=== PATIENT | female | born 1990 | race Caucasian/White ===

== ENCOUNTER 2017-09-28 21:32 | Emergency (ER) | payer OTHER ==
--- NOTE | 2017-09-28 23:22 | RADIOLOGY REPORT (SQ) ---
EXAM DESCRIPTION: HAND RIGHT 3 VIEWS COMPLETED DATE/TIME: 09/28/2017 10:19 pm REASON FOR STUDY: right thumb injury COMPARISON: None. EXAM PARAMETERS: NUMBER OF VIEWS: Three views. TECHNIQUE: AP, lateral and oblique radiographic images acquired of the right hand. LIMITATIONS: None. FINDINGS: MINERALIZATION: Normal. BONES: No acute fracture or dislocation. No worrisome bone lesions. JOINTS: No effusions. SOFT TISSUES: No significant soft tissue swelling. No foreign body. OTHER: No other significant finding. IMPRESSION: NO RADIOGRAPHIC EVIDENCE OF ACUTE INJURY. TECHNICAL DOCUMENTATION: JOB ID: [id number] [place]-[id number] [employer]- All Rights Reserved
--- NOTE | 2017-09-29 00:46 | ER Document Report ---
ED General - General Chief Complaint: Finger Injury Stated Complaint: FINGER INJURY Time Seen by Provider: 09/29/17 00:27 Notes: Patient is a 27-year-old female who presents with a right thumb injury. 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 She states that since that time she has had a dull, constant, moderate, throbbing pain to the area. Nothing improves or worsens the pain. She denies any history of similar injury in the past. She is right-hand dominant. She denies any additional injuries or concerns. She has not seen a primary care doctor regarding today's concerns. TRAVEL OUTSIDE OF THE [place] IN LAST 30 DAYS: No - Related Data Allergies/Adverse Reactions: Latex, Natural Rubber Adverse Reaction (Verified 02/17/16 07:19) Past Medical History - General Information source: Patient - Social History Smoking Status: Never Smoker Frequency of alcohol use: None Drug Abuse: None Lives with: Spouse/Significant other Family History: Reviewed & Not Pertinent - Immunizations Hx Diphtheria, Pertussis, Tetanus Vaccination: Yes Review of Systems - Review of Systems Notes: Constitutional: Negative for fever. HENT: Negative for sore throat. Eyes: Negative for visual changes. Cardiovascular: Negative for chest pain. Respiratory: Negative for shortness of breath. Gastrointestinal: Negative for abdominal pain, vomiting or diarrhea. Genitourinary: Negative for dysuria. Musculoskeletal: Positive for right thumb injury Skin: Negative for rash. Neurological: Negative for headaches, weakness or numbness. 10 point ROS negative except as marked above and in HPI. Physical Exam - Vital signs Interpretation: Normal Notes: PHYSICAL EXAMINATION: GENERAL: Well-appearing, well-nourished and in no acute distress. HEAD: Atraumatic, normocephalic. EYES: sclera anicteric, conjunctiva are normal. ENT: Moist mucous membranes. NECK: Normal range of motion LUNGS: Normal work of breathing HEART: 2+ radial pulses bilaterally EXTREMITIES: no pitting or edema. No cyanosis. Full flexion extension at the PIP and MCP of the right thumb. There is some moderate, diffuse swelling and ecchymosis to the volar pad of the thumb. NEUROLOGICAL: No focal neurological deficits. Moves all extremities spontaneously and on command. PSYCH: Normal mood, normal affect. SKIN: Warm, Dry, normal turgor, no rashes or lesions noted. Course - Re-evaluation Re-evalutation: 09/29/17 00:43 She presents with right thumb injury work in which the thumb was hyperextended. She has no limited range of motion at the PIP or MCP with full flexion extension. There is some generalized swelling of the thumb I suspect likely traumatic ecchymosis to the area. X-ray does not show any evidence of a fracture or dislocation. 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 At this time will discharge with return precautions and follow-up recommendations. Verbal discharge instructions given a the bedside and opportunity for questions given. Medication warnings reviewed. Patient is in agreement with this plan and has verbalized understanding of return precautions and the need for primary care follow-up in the next 24-72 hours. - Diagnostic Test Radiology reviewed: Image reviewed, Reports reviewed Radiology results interpreted by me: 09/29/17 00:44 Right hand x-ray: No acute fracture or dislocation Discharge - Discharge Clinical Impression: Injury of right thumb Qualifiers: Encounter type: initial encounter Qualified Code(s): S69.91XA - Unspecified injury of right wrist, hand and finger(s), initial encounter Condition: Good Disposition: HOME, SELF-CARE Additional Instructions: Your x-ray does not show any acute fracture today. You likely have a ligamentous strain. You should continue to take anti-inflammatories such as ibuprofen 600 mg every 6 hours. Continue to apply ice to the area is much your able. Please follow-up with your primary care physician if you do not have improving your symptoms in the next 1-2 weeks. Please return immediately if you develop weakness, numbness, spreading redness from the area, or any other symptoms that are concerning to you.
[2017-09-29 02:10] VITALS: BP 134/83
== END 2017-09-29 02:10 | disposition home or self-care (01) ==
LOC: ER 21:32
DX: S69.90XA Unspecified injury of unspecified wrist, hand and finger(s), initial encounter (principal); W50.0XXA Accidental hit or strike by another person, initial encounter; Y93.89 Activity, other specified; Y92.239 Unspecified place in hospital as the place of occurrence of the external cause; Y99.0 Civilian activity done for income or pay
CPT/HCPCS: 99283

== ENCOUNTER 2018-07-25 04:06 | Inpatient (IN) | payer OTHER ==
[2018-07-25] MEDS ORDERED: DINOPROSTONE 10 MG VAGINAL INSERT.SR PV PRN (04:16)
[2018-07-25] MEDS ORDERED: RINGERS SOLUTION,LACTATED 300 ML IV ONE (04:16)
[2018-07-25 05:05] LABS: ABSOLUTE EOSINOPHILS # (AUTO) 0.1 10^3/uL (0.0-0.6); ABSOLUTE LYMPHOCYTES (AUTO) 2.2 10^3/uL (0.5-4.7); ABSOLUTE MONOCYTES (AUTO) 0.4 10^3/uL (0.1-1.4); ABSOLUTE NEUT (AUTO) 4.3 10^3/uL (1.7-8.2); BASOPHILS % (AUTO) 0.2 % (0-2); EOSINOPHILS % (AUTO) 0.8 % (0-6); HEMATOCRIT 34.8 % (36.0-47.0); HEMOGLOBIN 11.6 g/dL (12.0-15.5); LYMPHOCYTES % (AUTO) 31.6 % (13-45); MEAN CORPUSCULAR HEMOGLOBIN 27.7 pg (27.0-33.4); MEAN CORPUSCULAR HGB CONC 33.2 g/dL (32.0-36.0); MEAN CORPUSCULAR VOLUME 83 fl (80-97); MONOCYTES % (AUTO) 6.1 % (3-13); PLATELET COUNT 176 10^3/uL (150-450); RED BLOOD COUNT 4.19 10^6/uL (3.72-5.28); SEGMENTED NEUTROPHILS % (AUTO) 61.3 % (42-78); TOTAL CELLS COUNTED % (AUTO) 100 %
[2018-07-25] MEDS ORDERED: DINOPROSTONE 10 MG VAGINAL INSERT.SR ONE (05:05)
[2018-07-25 05:16] LABS: APPEARANCE,URINE CLOUDY; BILIRUBIN,URINE NEGATIVE (NEGATIVE); COLOR,URINE YELLOW; GLUCOSE, URINE NEGATIVE (NEGATIVE); KETONES,URINE NEGATIVE (NEGATIVE); LEUKOCYTE ESTERASE,URINE LARGE (NEGATIVE); NITRITE,URINE NEGATIVE (NEGATIVE); PROTEIN,URINE NEGATIVE (NEGATIVE); URINE SPECIFIC GRAVITY 1.021; UROBILINOGEN,URINE NEGATIVE mg/dL (<2.0)
[2018-07-25] MEDS: RINGERS SOLUTION,LACTATED 1,000 ML IV PRN ×2 (05:16→21:49)
[2018-07-25 05:32] LABS: URINE AMPHETAMINES SCREEN NEGATIVE; URINE BARBITURATES SCREEN NEGATIVE; URINE BENZODIAZEPINES SCREEN NEGATIVE; URINE COCAINE SCREEN NEGATIVE; URINE MARIJUANA (THC) SCREEN NEGATIVE; URINE METHADONE SCREEN NEGATIVE; URINE PHENCYCLIDINE SCREEN NEGATIVE
--- NOTE | 2018-07-25 06:32 | Admission Physical ---
Datetime Report Generated by CPN: 07/25/2018 06:32 CURRENT ADMISSION Chief Complaint: Scheduled Induction of Labor Indication for Induction: Post Dates Admit Impression : Term, Intrauterine Admit Plan: Admit to Unit; Initiate Labor Induction Protocol ALLERGIES Medication Allergies: No Medication Allergies: Latex, Natural Rubber (09/29/2017) Latex: Latex Allergies OBSTETRICAL HISTORY EDC: 07/21/2018 00:00 : 4 Para: 2 Term: 2 : 0 SAB: 1 IAB: 0 Ectopic: 0 Livin Cesareans: 0 VBACs: 0 Multiple Births: 0 Gestational Diabetes: No Rh Sensitization: No Incompetent Cervix: No NEREIDA: No Infertility: No ART Treatment: No Uterine Anomaly: No IUGR: No Hx Previous C/S: No Macrosomia: No Hx Loss/Stillborn: No PIH: No Hx : No Placenta Previa/Abruption: No Depression/PP Depression: No PTL/PROM: No Post Hemorrhage: No Current Procedures: Ultrasound Obstetrical History Comments: G1-2008 female 39.5wks 8lbs 12 oz G2-2014 SAB G3-2016 female term 7lbs 6oz G4-Current SEE RECORDS Alcohol: No Marijuana : No Cocaine: No Other Illicit Drugs: No Cigarettes: Former Smoker. 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: No Heart Disease: No Hosp/Surgery: No Autoimmune Disorder: No Anesthetic Complications: No Kidney Disease: No Abnormal Pap Smear: No Neuro/Epilepsy: No Psychiatric Disorders: No Other Medical Diseases: Yes Hepatitis/Liver Disease: No Significant Family History: No Varicosities/Phlebitis: No Trauma/Violence : No Thyroid Dysfunction: No Medical History Comments: PCOS, ADHD INFECTIOUS HISTORY Gonorrhea: No Genital Herpes: No Chlamydia: No Tuberculosis: No Syphilis: No Hepatitis: No HIV/AIDS Exposure: No Rash or Viral Illness: No HPV: No PHYSICAL EXAM General: Normal HEENT: Normal Neurologic: Normal Thyroid: Normal Heart: Normal Lungs: Normal Breast: Normal Back: Normal Abdomen: Normal Genitourinary Exam: Normal Extremities: Normal DTRs: Normal Pelvic Type: Adequate Vital Signs: Reviewed (Annotations: Data stored by CPN on behalf of user) VAGINAL EXAM Dilatation: closed Effacement: thick Station: -3 Contraction Comments: rare MEMBRANES Membranes: Intact FETUS A EGA: 40.4 Monitoring: External US FHR- Baseline: 120s Accelerations: 15X15 Decelerations: None FHR Category: Category I Admit Comment: Cervidil placed at 2100 PLANS FOR LABOR AND DELIVERY Labor and Delivery: None Pain Management: Epidural Feeding Preference: Breast Benefit of Breast Feed Discussed: Yes INFORMED CONSENT Signature: with User ID: [email or web address]
--- NOTE | 2018-07-25 12:31 | L&D Progress Notes ---
PROGRESS NOTES Datetime Report Generated by CPN: 07/25/2018 12:31 PROGRESS NOTE Impression: Reassuring Heart Rate Plan: Continue Present Management; Cervical Ripening Informed Consent Obtained: Vaginal Delivery Comment: Irreg uc's, Cat 1 strip, cervidil remains in place VAGINAL EXAM Dilatation: closed Effacement: thick Station: -3 Contractions: rare MEMBRANES Membranes: Intact FETUS A : 40.4 SIGNATURE SIGNATURE: [id number] SIGNATURE: [id number] Assignment: Xochitl Jacob MD Signature: with User ID: Phil : with User ID: Phil
[2018-07-25] MEDS ORDERED: OXYTOCIN/NORMAL SALINE 20 UNIT/1,000 ML RTUINJ IV PRN ×2 (18:35→21:35)
[2018-07-25] MEDS ORDERED: OXYTOCIN/NORMAL SALINE 20 UNIT/1,000 ML RTUINJ ONE (18:37)
[2018-07-25] MEDS ORDERED: FENTANYL CITRATE INJ/PF 100 MCG/2 ML AMPUL ONE (20:36)
[2018-07-25] MEDS ORDERED: PHENYLEPHRINE HCL INJ/PF 10 MG/1 ML SDV ONE (20:36)
[2018-07-25] MEDS ORDERED: EPHEDRINE SULFATE INJ 50 MG/1 ML AMPULE ONE (20:36)
[2018-07-25] MEDS ORDERED: FENTANYL/BUPIVACAINE/NS/PF 0 MCG/0 ML RTUINJ EPI ONE (20:37)
[2018-07-25] MEDS ORDERED: BUPIVACAINE HCL 0.5 % INJ/PF 30 ML SDV ONE (20:37)
[2018-07-25] MEDS ORDERED: LIDOCAINE 1% INJ-PF (10 MG/ML) 30 ML SDV ONE (21:09)
[2018-07-25] MEDS ORDERED: MISOPROSTOL 0.2 MG TABLET ONE (21:09)
[2018-07-25] MEDS ORDERED: NA PHOS,M-B/NA PHOS,DI-BA (ADULT) 133 ML ENEMA PR PRN (21:35)
[2018-07-25] MEDS ORDERED: PROMETHAZINE HCL 25 MG SUPP.RECT PR PRN (21:35)
[2018-07-25] MEDS ORDERED: DIBUCAINE 1% OINTMENT 28 GM TP PRN (21:35)
[2018-07-25] MEDS ORDERED: PROMETHAZINE HCL INJ 25 MG/1 ML VIAL IV PRN (21:35)
[2018-07-25] MEDS ORDERED: ZOLPIDEM TARTRATE 5 MG TABLET PO PRN (21:35)
[2018-07-25] MEDS ORDERED: ACETAMINOPHEN 650 MG SUPP.RECT PR PRN (21:35)
[2018-07-25] MEDS ORDERED: GLYCERIN/WITCH HAZEL LEAF 1 EACH MED..PAD TP PRN (21:35)
[2018-07-25] MEDS ORDERED: DIPH/PERTUSS(ACELL)/TETANUS VAC/PF 0.5 ML SYR (>=10YO) IM PRN (21:35)
[2018-07-25] MEDS ORDERED: PROMETHAZINE HCL 25 MG TABLET PO PRN (21:35)
[2018-07-25] MEDS ORDERED: MEASLES,MUMPS&RUBELLA VACC/PF 0.5 ML VIAL SUBCUT PRN (21:35)
[2018-07-25] MEDS ORDERED: ACETAMINOPHEN WITH CODEINE #3 TABLET PO PRN (21:35)
[2018-07-25] MEDS ORDERED: DIPHENHYDRAMINE HCL 25 MG CAPSULE PO PRN (21:35)
[2018-07-25] MEDS ORDERED: BENZOCAINE/MENTHOL AEROSOL SPRAY 56 ML TOP PRN (21:35)
[2018-07-25] MEDS ORDERED: PSEUDOEPHEDRINE HCL 30 MG TABLET PO PRN (21:35)
[2018-07-25] MEDS ORDERED: MAGNESIUM HYDROXIDE SUSP 30 ML UDCUP PO PRN (21:35)
[2018-07-25] MEDS ORDERED: IBUPROFEN 800 MG TABLET ONE (21:43)
[2018-07-25] MEDS: IBUPROFEN 800 MG TABLET PO SCH (21:47)
--- NOTE | 2018-07-25 21:56 | Warning Signs in Babies ---
VOD Warning Signs Datetime Report Generated by N: 07/25/2018 21:56 VOD#608 -Warning Signs in Babies: Viewed with Parent(s)/Family (07/25/2018 21:45:Rina Puckett RN)
[2018-07-25] MEDS ORDERED: BENZOCAINE/MENTHOL AEROSOL SPRAY 56 ML ONE (22:41)
[2018-07-26] MEDS: FAMOTIDINE 20 MG TABLET PO SCH ×3 (03:45→22:18)
[2018-07-26] MEDS: IBUPROFEN 800 MG TABLET PO SCH ×3 (05:06→22:18)
[2018-07-26 06:54] LABS: HEMATOCRIT 33.9 % (36.0-47.0); HEMOGLOBIN 11.2 g/dL (12.0-15.5); MEAN CORPUSCULAR HEMOGLOBIN 27.6 pg (27.0-33.4); MEAN CORPUSCULAR HGB CONC 33.1 g/dL (32.0-36.0); MEAN CORPUSCULAR VOLUME 84 fl (80-97); PLATELET COUNT 170 10^3/uL (150-450); RED BLOOD COUNT 4.06 10^6/uL (3.72-5.28); RED CELL DISTRIBUTION WIDTH 14.8 % (11.5-14.0); WHITE BLOOD COUNT 12.6 10^3/uL (4.0-10.5)
--- NOTE | 2018-07-26 08:31 | Delivery Summary ---
Del Sum A-C Datetime Report Generated by CPN: 07/26/2018 08:31 DELIVERY PERSONNEL DELIVERY PERSONNEL: [id number] Delivery Doctor:: Xochitl Jacob MD Labor and Delivery Nurse:: Rina Puckett RNlocker room attendant Nurse:: Hayde Watson RN Typesetting Machine Operator/Tender/MANAGER FILTER: Cortney Felipe, ST Additional Personnel: : Marti Fitzgerald RN MATERNAL INFORMATION Delivery Anesthesia: None Medications After Delivery: Pitocin Drip 20 Units/1000ml NSS Estimated Blood Loss (ml): 200 Maternal Complications: None LABOR SUMMARY EDC: 07/21/2018 00:00 No. Babies in Womb: 1 Attempted: No Labor Anesthesia: None LABOR INFORMATION Reason for Induction: Post Dates Onset of Labor: 07/25/2018 18:14 Complete Dilatation: 07/25/2018 21:13 Cervical Ripening Agents: Cervidil Oxytocin: Induction Group B Beta Strep: Negative Steroids Given: None Reason Steroids Not Administered: Not Applicable MEMBRANES Membranes Rupture Method: Artificial Rupture of Membranes: 07/25/2018 21:07 Length of Rupture (hr): 0.13 Amniotic Fluid Color: Clear Amniotic Fluid Amount: Scant STAGES OF LABOR Stage 1 hr: 2 Stage 1 min: 59 Stage 2 hr: 0 Stage 2 min: 2 Stage 3 hr: 0 Stage 3 min: 4 Total Time in Labor hr: 3 Total Time in Labor min: 5 VAGINAL DELIVERY Episiotomy: None Laceration #1: None Laceration Extension #1: N/A Laceration Repair: Not Applicable Sponge Count Correct: N/A Sharps Count Correct: N/A CSECTION DELIVERY Primary Indication: N/A Secondary Indication: N/A CSection Incidence: N/A Labor: N/A Elective: N/A CSection Incision: N/A BABY A INFORMATION Infant Delivery Date/Time: 07/25/2018 21:15 Method of Delivery: Vaginal Born in Route : No : N/A Forceps: N/A Vacuum Extraction: N/A Shoulder Dystocia : No PRESENTATION/POSITION BABY A Presentation: Cephalic Cephalic Presentation: Vertex Vertex Position: Right Occipital Anterior Breech Presentation: N/A PLACENTA INFORMATION BABY A Placenta Delivery Time : 07/25/2018 21:19 Placenta Method of Delivery: Spontaneous Placenta Status: Delivered SCORES BABY A Heart Rate 1 min: >100 bpm Resp Effort 1 min: Good Cry Reflex Irritability 1 min: Cough or Sneeze or Pulls Away Muscle Tone 1 min: Active Motion Color 1 min: Blue/Pale Resuscitation Effort 1 min: Tactile Stimulation SCORE 1 MIN: 8 Heart Rate 5 min: >100 bpm Resp Effort 5 min: Good Cry Reflex Irritability 5 min: Cough or Sneeze or Pulls Away Muscle Tone 5 min: Active Motion Color 5 min: Body [place], Extremities Blue Resuscitation Effort 5 min: Tactile Stimulation SCORE 5 MIN: 9 INFANT INFORMATION BABY A Gestational Age at Delivery: 40.4 Gestational Status: Full Term- 39- 40.6 Weeks Infant Outcome : Liveborn Condition : Stable Infant Sex: Male IDENTIFICATION BABY A Verification Date/Time: 07/25/2018 21:31 ID Band Number: [id number] Mother's Name Verified: Yes Infant RN Verifying Infant: Payal Watson RN, Payal Puckett RN WEIGHT/LENGTH BABY A Infant Birthweight (gm): 4130 Infant Weight (lb): 9 Infant Weight (oz): 2 Length (in): 21.00 Infant Length (cm): 53.34 CORD INFORMATION BABY A No. Cord Vessels: 3 Nuchal Cord : N/A Cord Blood Taken: Yes-For Storage (Mom's Blood type +) Infant Suction: None ASSESSMENT BABY A Infant Complications: None Physical Findings at Delivery: Within Normal Limits Respirations: Appears Normal Skin to Skin: Yes Manager Risk Management/ALS Called : No Care By: Payal Fitzgerald RN Transferred To: Remains with Mother BABY B INFORMATION : N/A SIGNATURES Signature: with User ID: [email or web address]
--- NOTE | 2018-07-26 09:44 | PDOC PROGRESS REPORT ---
Subjective-OB Progress Note for:: 07/26/18 Subjective: PP Day #1, pt doing well, , no complaints A+ Rubella + Physical Exam (OB) Vital Signs: Temp Pulse Resp BP Pulse Ox 97.9 F 61 18 141/75 H 99 07/26/18 07:44 07/26/18 07:44 07/26/18 07:44 07/26/18 07:44 07/26/18 07:44 Intake & Output 07/25/18 07/26/18 07/27/18 06:59 06:59 06:59 Intake Total 1000 Balance 1000 Weight 102.4 kg - General General Appearance: Appears well, Alert In distress: None - PIH/Pre-Eclampsia Clonus: Negative Headache: Absent Epigastric Pain: No Visual Changes: No - Lochia Lochia Amount: Scant < 10 ml Lochia Color: Rubra/Red - Abdomen Description: Soft, Flat Hernia Present: No Fundal Description: Firm, Midline Fundal Height: u/u - u/2 - HEENT Head: Normocephalic Eyes: Normal - Respiratory Respiratory Status: No respiratory distress - Abdominal Inspection: Normal Distension: No distension - Genitourinary Genitourinary Note: voiding - Extremities Upper extremity: Normal inspection Lower extremities: Normal inspection - Neurological Cognition: Normal Orientation: AAOx4 - Psychological Associated symptoms: Normal affect, Normal mood - Skin Skin Temperature: Warm Skin Moisture: Dry Objective-Diagnostic Laboratory: 07/26/18 06:39 07/26/18 06:39 WBC 12.6 H RBC 4.06 Hgb 11.2 L Hct 33.9 L MCV 84 MCH 27.6 MCHC 33.1 RDW 14.8 H Plt Count 170 Assessment and Plan(PN) - Assessment and Plan (2) Obesity Qualifiers: Obesity type: due to excess calories Is this a current diagnosis for this admission?: Yes (3) Qualifiers: Weeks of gestation: unspecified Qualified Code(s): Z34.90 - Encounter for supervision of normal , unspecified, unspecified trimester Is this a current diagnosis for this admission?: Yes (4) Vaginal delivery Is this a current diagnosis for this admission?: Yes - Time Spent with Patient Time with patient: Less than 15 minutes Medications reviewed and adjusted accordingly: Yes - Disposition Anticipated Discharge: Home Within: within 24 hours
[2018-07-26] MEDS: FERROUS SULFATE 325 MG TABLET PO SCH ×2 (10:32→18:23)
[2018-07-26] MEDS: DOCUSATE SODIUM 100 MG CAPSULE PO SCH ×2 (10:32→18:23)
[2018-07-26] MEDS: SENNOSIDES/DOCUSATE 8.6-50 MG 1 EACH TABLET PO SCH (10:32)
[2018-07-26] MEDS: PRENATAL VITAMIN W DHA CAPSULE PO SCH (10:32)
[2018-07-26] MEDS: ACETAMINOPHEN WITH CODEINE #3 TABLET PO PRN (19:38)
[2018-07-27] MEDS: ACETAMINOPHEN WITH CODEINE #3 TABLET PO PRN (00:36)
[2018-07-27] MEDS: IBUPROFEN 800 MG TABLET PO SCH (06:57)
--- NOTE | 2018-07-27 09:53 | PDOC PROGRESS REPORT ---
Subjective-OB Progress Note for:: 07/27/18 Subjective: Ready for discharge. Physical Exam (OB) Vital Signs: Temp Pulse Resp BP Pulse Ox 97.8 F 92 18 142/82 H 98 07/27/18 00:38 07/27/18 00:38 07/27/18 00:38 07/27/18 00:38 07/27/18 00:38 Intake & Output 07/26/18 07/27/18 07/28/18 06:59 06:59 06:59 Intake Total 1000 500 Balance 1000 500 - PIH/Pre-Eclampsia Clonus: Negative Headache: Present Epigastric Pain: No Visual Changes: No - Lochia Lochia Amount: Scant < 10 ml Lochia Color: Rubra/Red - Abdomen Description: Soft, Round Hernia Present: No Bowel Sounds: Normoactive Flatus Presence: Present Stool: No Fundal Description: Firm Fundal Height: u/u - u/2 Objective-Diagnostic Laboratory: 07/26/18 06:39 Assessment and Plan(PN) - Time Spent with Patient Medications reviewed and adjusted accordingly: Yes - Disposition Anticipated Discharge: Home
--- NOTE | 2018-07-27 09:59 | PDOC DISCHARGE SUMMARY ---
Final Diagnosis Discharge Date: 07/27/18 - Final Diagnosis (1) Normal course Is this a current diagnosis for this admission?: Yes (2) Obesity Is this a current diagnosis for this admission?: Yes (3) Is this a current diagnosis for this admission?: Yes (4) Vaginal delivery Is this a current diagnosis for this admission?: Yes Discharge Data - Discharge Medication Home Medications: Pnv 102/Iron/Folate 1/Dss/Dha [Vitafol Fe+ Docusate Combo Pck] 1 cap PO DAILY Gestational Age: 40.4 wks Reason(s) for Admission: Induction of Labor Intrapartum Procedure(s): Spontaneous Vaginal Delivery - Data Baby 1 Male at 1 minute: 8 at 5 minutes: 9 Weight: 4.139 kg Home with Mother: Yes Complications: No - Diagnosis Test Laboratory: Temp Pulse Resp BP Pulse Ox 97.8 F 92 18 142/82 H 98 07/27/18 00:38 07/27/18 00:38 07/27/18 00:38 07/27/18 00:38 07/27/18 00:38 07/25/18 07/25/18 07/26/18 04:20 04:49 06:39 RBC 4.19 4.06 Hgb 11.6 L 11.2 L Hct 34.8 L 33.9 L Urine Opiates Screen NEGATIVE - Discharge information/Instructions Discharge Activity: Activity As Tolerated, Balance Activity w/Rest, Pelvic Rest , Slowly Increase Activity, No tub bath Discharge Diet: Regular Disposition: HOME, SELF-CARE Follow [facility] with: [facility] in: 4, Weeks
[2018-07-27] MEDS: FAMOTIDINE 20 MG TABLET PO SCH (10:03)
[2018-07-27] MEDS: DOCUSATE SODIUM 100 MG CAPSULE PO SCH (10:03)
[2018-07-27] MEDS: SENNOSIDES/DOCUSATE 8.6-50 MG 1 EACH TABLET PO SCH (10:03)
[2018-07-27] MEDS: FERROUS SULFATE 325 MG TABLET PO SCH (10:03)
[2018-07-27] MEDS: PRENATAL VITAMIN W DHA CAPSULE PO SCH (10:03)
[2018-07-27 10:34] VITALS: BP 138/87
== END 2018-07-27 12:33 | disposition home or self-care (01) | DRG 807 ==
LOC: LR 04:06 → 2S 23:30
PROVIDERS: ADMIT Obstetrics & Gynecology; ATTEND Obstetrics & Gynecology
PROC: 10E0XZZ Delivery of Products of Conception, External Approach (ICD-10-PCS; principal; 2018-07-25)
PROC: 3E0P7VZ Introduction of Hormone into Female Reproductive, Via Natural or Artificial Opening (ICD-10-PCS; 2018-07-25)
PROC: 4A1HXCZ Monitoring of Products of Conception, Cardiac Rate, External Approach (ICD-10-PCS; 2018-07-25)
PROC: 3E02340 Introduction of Influenza Vaccine into Muscle, Percutaneous Approach (ICD-10-PCS; 2018-07-27)
PROC: 3E0234Z Introduction of Serum, Toxoid and Vaccine into Muscle, Percutaneous Approach (ICD-10-PCS; 2018-07-27)
DX: O48.0 Post-term pregnancy (principal); Z37.0 Single live birth; O99.214 Obesity complicating childbirth; E66.9 Obesity, unspecified; Z87.891 Personal history of nicotine dependence; Z3A.40 40 weeks gestation of pregnancy; Z91.040 Latex allergy status; Z23 Encounter for immunization
CPT/HCPCS: 36415; 80307; 81005; 85025; 85027; 86592; 86850; 86900; 86901; 90471; 90686; 90715; G0008; J2370; J2590; J3010; J3490